=== PATIENT | female | born 1975 ===

== ENCOUNTER 2018-07-28 10:06 | Outpatient (CLI) | payer OTHER ==
[~2018-07-28] VITALS: Ht 152.4 cm; Wt 87.1 kg
== END 2018-07-28 10:20 | disposition home or self-care (01) ==
LOC: OFIC 805 10:06
DX: J31.0 Chronic rhinitis (principal); M26.69 Other specified disorders of temporomandibular joint; H90.3 Sensorineural hearing loss, bilateral